=== PATIENT | female | born 1995 | race Caucasian/White ===

== ENCOUNTER 2016-10-07 17:35 | Inpatient (IN) | payer OTHER ==
[~2016-10-07] VITALS: Ht 154.9 cm; Wt 43.1 kg
[2016-10-07 18:32] LABS: URINE APPEARANCE CLEAR (CLEAR); URINE BILIRUBIN NEG (NEG); URINE COLOR YELLOW; URINE NITRITE NEG (NEG); URINE SPECIFIC GRAVITY 1.009 (1.000-1.030); UROBILINOGEN NEG (NEG)
[2016-10-07 18:36] LABS: MANUAL MICROSCOPIC REQUIRED? NO; REVIEW REQ? NO
[2016-10-07 18:59] LABS: BENZODIAZEPINE, URINE NEG (NEG); COCAINE,URINE NEG (NEG); PHENCYCLIDINE, URINE NEG (NEG)
[2016-10-07 19:01] LABS: BASO % 0.2 %; BASO ABS # 0.01 K/uL (0-0.2); COMPLETE YES; EOS % 1.3 %; HEMATOCRIT 40.7 % (37-47); IG% 0.2 %; LYMPH % 32.7 %; LYMPH ABS # 1.99 K/uL (1.2-3.4); MEAN CELL VOLUME 87.2 fL (80-100); MEAN CORPUSCULAR HEMOGLOBIN 30.6 pg (25-34); MEAN CORPUSCULAR HGB CONC 35.1 g/dl (32-36); MEAN PLATELET VOLUME 9.5 fL (7.4-10.4); MONO % 7.2 %; NEUT % 58.4 %; PLATELET COUNT 216 K/uL (130-400); RED BLOOD COUNT 4.67 M/uL (4.2-5.4); WHITE BLOOD COUNT 6.08 K/uL (4.8-10.8)
[2016-10-07 19:26] LABS: BUN/CREATININE RATIO 13.9 (10-20); CALCIUM 9.3 mg/dl (8.5-10.1); CREATININE 0.67 mg/dl (0.60-1.20); POTASSIUM 3.7 mmol/L (3.5-5.1)
[2016-10-07 19:36] LABS: THYROID STIMULATING HORMONE 1.99 uIu/ml (0.300-4.500)
[2016-10-07] MEDS ORDERED: SERT25TA PO (19:52)
[2016-10-07] MEDS ORDERED: CETI10TA84 PO (19:52)
[2016-10-07] MEDS ORDERED: FLUT0.15 NAE (19:52)
[2016-10-07 21:00] VITALS: O2SAT 98
[2016-10-07] MEDS ORDERED: MAGNESIUM HYDROXIDE SUSP 30 ML UDC PO PRN (21:00)
[2016-10-07] MEDS ORDERED: hydrOXYzine HCL 25 MG TAB PO PRN ×2 (21:00)
[2016-10-07] MEDS ORDERED: SODIUM CHLORIDE 0.65% NA SOLN 45 ML (OCEAN) PRN (21:00)
[2016-10-07] MEDS ORDERED: ALUMINUM/MAGNESIUM SUSP 30 ML UDC PO PRN (21:00)
[2016-10-07] MEDS ORDERED: ACETAMINOPHEN 325 MG TAB PO PRN (21:00)
[2016-10-07] MEDS ORDERED: BISMUTH SUBSALICYLATE PER ML OMNICELL CHARGE PO PRN (21:00)
[2016-10-07 22:26] VITALS: BP 118/89; PULSE 67; TEMP 36.5; Ht 154.9 cm; Wt 43.1 kg
--- NOTE | 2016-10-08 00:03 | EMERGENCY ROOM VISIT NOTE ---
History Report prepared by Meghan: Odessa Pimentel Under the Supervision of: Dr. Darin Heath D.O. First contact with patient: 17:57 Chief Complaint: MENTAL HEALTH EVALUATION Stated Complaint: SUICIDAL THOUGHTS History of Present Illness The patient is a 21 year old female who presents to the Emergency Room with complaints of persistent suicidal thoughts starting 3 months ago. The patient was sent here from [facility] at [facility]. The patient is on academic suspension and having financial problems. Her parents were unwilling to cosign a loan for her and her friend who had agreed to cosign the loan changed her mind today. She has been thinking about harming herself over the summer. She has had a plan to hang herself. She is agreeable to inpatient care. She has had abdominal pain starting 1 hour ago which does happen when she is worked up. She denies any hematochezia, melena, or other complaints. She denies any chance of . She currently has her menstrual period. She denies any drug or alcohol use. She is on Zoloft. Source of History: patient Onset: 3 months ago Position: other (mental health) Quality: other (suicidal thoughts) Timing: other (persistent) Associated Symptoms: + abdominal pain, No melena, No hematochezia Review of Systems See HPI for pertinent positives & negatives. A total of 10 systems reviewed and were otherwise negative. Past Medical & Surgical Medical Problems: (1) Depression Family History No pertinent family history stated. Social History Smoking Status: Never Smoker Occupation Status: [employer] student Current/Historical Medications Scheduled Cetirizine (Zyrtec), 10 MG PO DAILY Fluticasone Propionate (Nasal) (Flonase Allergy Relief), TIANA DAILY Sertraline (Zoloft), 10 MG PO DAILY Allergies Coded Allergies: [place] (Verified Allergy, Severe, anaphylaxis/throat swelling, 10/07/16) Physical Exam Vital Signs Date Time Temp Pulse Resp B/P (MAP) Pulse Ox O2 Delivery O2 Flow Rate FiO2 10/07/16 17:43 36.7 69 20 153/85 98 Room Air Physical Exam GENERAL: sitting up in bed, tearful, disheveled EYE EXAM: conjunctiva injected OROPHARYNX: no exudate, no erythema, lips, buccal mucosa, and tongue normal and mucous membranes are moist NECK: supple, no nuchal rigidity, no adenopathy, non-tender LUNGS: Clear to auscultation. Normal chest wall mechanics HEART: no murmurs, S1 normal and S2 normal ABDOMEN: abdomen soft, non-tender, normo-active bowel sounds, no masses, no rebound or guarding. BACK: Back is symmetrical on inspection and there is no deformity, no midline tenderness, no CVA tenderness. SKIN: no rashes and no bruising UPPER EXTREMITIES: upper extremities are grossly normal. LOWER EXTREMITIES: No pitting edema. NEURO EXAM: Normal sensorium, cranial nerves II-XII grossly intact, normal speech, no gross weakness of arms, no gross weakness of legs. No drift. Finger to nose intact. Gross sensation intact. PSYCH: admits to SI with plan to hang herself Medical Decision & Procedures Laboratory Results 10/07/16 18:44 Red Blood Count 4.67, Mean Corpuscular Volume 87.2, Mean Corpuscular Hemoglobin 30.6, Mean Corpuscular Hemoglobin Concent 35.1, Mean Platelet Volume 9.5, Neutrophils (%) (Auto) 58.4, Lymphocytes (%) (Auto) 32.7, Monocytes (%) (Auto) 7.2, Eosinophils (%) (Auto) 1.3, Basophils (%) (Auto) 0.2, Neutrophils # (Auto) 3.55, Lymphocytes # (Auto) 1.99, Monocytes # (Auto) 0.44, Eosinophils # (Auto) 0.08, Basophils # (Auto) 0.01 10/07/16 18:44 Test 10/07/16 17:50 10/07/16 18:15 10/07/16 18:44 Urine Color YELLOW Urine Appearance CLEAR (CLEAR) Urine pH 7.0 (4.5-7.5) Urine Specific [place] 1.009 (1.000-1.030) Urine Protein NEG (NEG) Urine Glucose (UA) NEG (NEG) Urine Ketones NEG (NEG) Urine Occult Blood NEG (NEG) Urine Nitrite NEG (NEG) Urine Bilirubin NEG (NEG) Urine Urobilinogen NEG (NEG) Urine Leukocyte Esterase NEG (NEG) Urine Test NEG (NEG) Urine Opiates Screen NEG (NEG) Urine Methadone, Qualitative NEG (NEG) Urine Barbiturates NEG (NEG) Urine Phencyclidine (PCP) Level NEG (NEG) Ur Amphetamine/Methamphetamine NEG (NEG) MDMA (Ecstasy) Screen NEG (NEG) Urine Benzodiazepines Screen NEG (NEG) Urine Cocaine Metabolite NEG (NEG) Urine Marijuana (THC) NEG (NEG) Bedside Glucose 72 mg/dl (70-90) White Blood Count 6.08 K/uL (4.8-10.8) Red Blood Count 4.67 M/uL (4.2-5.4) Hemoglobin 14.3 g/dL (12.0-16.0) Hematocrit 40.7 % (37-47) Mean Corpuscular Volume 87.2 fL (80-100) Mean Corpuscular Hemoglobin 30.6 pg (25-34) Mean Corpuscular Hemoglobin Concent 35.1 g/dl (32-36) Platelet Count 216 K/uL (130-400) Mean Platelet Volume 9.5 fL (7.4-10.4) Neutrophils (%) (Auto) 58.4 % Lymphocytes (%) (Auto) 32.7 % Monocytes (%) (Auto) 7.2 % Eosinophils (%) (Auto) 1.3 % Basophils (%) (Auto) 0.2 % Neutrophils # (Auto) 3.55 K/uL (1.4-6.5) Lymphocytes # (Auto) 1.99 K/uL (1.2-3.4) Monocytes # (Auto) 0.44 K/uL (0.11-0.59) Eosinophils # (Auto) 0.08 K/uL (0-0.5) Basophils # (Auto) 0.01 K/uL (0-0.2) RDW Standard Deviation 40.1 fL (36.4-46.3) RDW Coefficient of Variation 12.6 % (11.5-14.5) Immature Granulocyte % (Auto) 0.2 % Immature Granulocyte # (Auto) 0.01 K/uL (0.00-0.02) Anion Gap 7.0 mmol/L (3-11) Est Creatinine Clear Calc Drug Dose 93.0 ml/min Estimated GFR () 146.7 Estimated GFR (Non- 126.5 BUN/Creatinine Ratio 13.9 (10-20) Calcium Level 9.3 mg/dl (8.5-10.1) Total Bilirubin 0.7 mg/dl (0.2-1) Direct Bilirubin 0.2 mg/dl (0-0.2) Aspartate Amino Transf (AST/SGOT) 21 U/L (15-37) Alanine Aminotransferase (ALT/SGPT) 26 U/L (12-78) Alkaline Phosphatase 72 U/L (45-117) Total Protein 7.4 gm/dl (6.4-8.2) Albumin 3.9 gm/dl (3.4-5.0) Thyroid Stimulating Hormone (TSH) 1.990 uIu/ml (0.300-4.500) Ethyl Alcohol mg/dL < 3.0 mg/dl (0-3) Laboratory results per my review. ED Course ED COURSE: Vital signs were reviewed and showed hypertension. The patients medical record was reviewed The above diagnostic studies were performed and reviewed. ED treatments and interventions as stated above. 1803: The patient was evaluated in room A7. A complete history and physical examination was performed. 2034: Upon reevaluation, the patient is resting comfortably.I discussed my findings with the patient and she understands and agrees with the treatment plan. Based on the patients age, coexisting illnesses, exam and lab findings the decision to treat as an inpatient was made. The patient remained stable while under my care. The patient has been accepted to [address] [place] [address]. Medical Decision Differential diagnosis: Etiologies such as mood disorder, infection, hypoglycemia, electrolyte abnormalities, cardiac sources, intracerebral event, toxicologic, neurologic, as well as others were entertained. Patient is a 21-year-old female that presents to ER referred in by [facility] because she has been having suicidal thoughts over at him and preparation and money. She denies any other complaints. She has a clear plan to hang himself. CBC, BMP, LFTs, TSH is unremarkable. Tox is negative. Alcohol is negative. UA is negative. negative. Patient was up to the bedside and admitted to psychiatry following a full evaluation. Medication Reconcilliation Current Medication List: was personally reviewed by me Blood Pressure Screening Patient's blood pressure: Elevated blood pressure Blood pressure disposition: Elevated BP felt to be situational Impression Primary Impression: Mood disorder Additional Impression: Suicidal ideation Scribe Attestation The scribe's documentation has been prepared under my direction and personally reviewed by me in its entirety. I confirm that the note above accurately reflects all work, treatment, procedures, and medical decision making performed by me. Departure Information Dispostion [facility] Acute Care Referrals No Doctor, Assigned (PCP) Patient Instructions My [facility] Problem Qualifiers
[2016-10-08 06:46] VITALS: BP_SYST 103; BP_SYST 99; BP_DIAS 59; BP_DIAS 61; PULSE 77; PULSE 82; TEMP 36.5
[2016-10-08] MEDS: FLUTICASONE PROPIONATE NA SPR 16 GM BTL NAE SCH (09:00)
[2016-10-08] MEDS ORDERED: SERTRALINE HCL 50 MG TAB PO SCH ×2 (09:00→22:00)
[2016-10-08] MEDS: CETIRIZINE HCL 10 MG TAB PO SCH (09:00)
[2016-10-08] MEDS ORDERED: METH1TAB16 PO (09:33)
--- NOTE | 2016-10-08 10:06 | Psychiatric History & Physical ---
History Date of Service Oct 08, 2016. 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 She was admitted voluntarily, but immediately submitted a 72 hour notice requesting to withdraw from treatment. There are two 302 petitioning statements, from her therapist and the ER psych disease case manager rn. Chief Complaint "Well basically, I was on academic suspension, so I had to do a petition to withdraw, and part of the reason I wasn't doing well was depression...". History of Present Illness The patient was seen by her therapist at [facility] yesterday, who sent her into the emergency room. The 302 petition completed by her therapist states she has seen her 4 times in the past 2 weeks and she has endorsed increasing suicidal thoughts, and despite a prolonged session yesterday was unable to contract for safety. Hospital notes indicate the patient signed in voluntarily in the ER, then immediately submitted a 72 hour notice, saying she did not want to be here. On my assessment today, the patient reports she wants to leave immediately, as it is making her feel worse to be here, and she thought she was coming to the hospital "for just an evaluation. I never would have come if I knew I'd be admitted." She says she was coerced into signing in, as she was told that if she did not sign in, she would be involuntarily committed "and it would be on my record, so of course I signed. But I am super pissed, I do not need to be here, I need to leave, I have to talk to student aid, I have work to do!" She says she needs to leave to get back to her classes and go to the football game this weekend. She endorses depression, diagnosed this summer by her tent finisher and treated with sertraline 10mg daily. She also reports decreased appetite with a 10 pound weight loss, insomnia, anxiety about school, and tearfulness. She admits to suicidal thoughts "on and off for years," worsening over the past month, with a plan to hang herself or overdose. She has researched ways to commit suicide, but says this was "years ago." She endorses stressors of being on academic probation so had to withdraw from school last spring semester, financial strain, recent breakup, and school. [employer] allowed her to return to school this semester, but has not been able to find someone to cosign on her school loans, so is not sure she will have the money for tuition. Her godmother had initially agreed, but yesterday changed her mind, and sent the patient an email saying she couldn't sign. Her parents are not able to cosign due to their financial situation. She was feeling very stressed about the financial issues yesterday, and was also feeling poorly as she'd just gotten her period. She admits to "being in a super dark place," but says her family and friends are protective. She denies hopelessness. She denies symptoms of monster, panic, PTSD, psychosis, and thoughts of harming others. She denies eating disorder symptoms, says she has lost weight due to decreased appetite from stress, and denies binging, purging, restricting to lose weight. Her sertraline dose was increased to 25mg (which is actually the dose prescribed by her tent finisher), but she refused to take it this morning. She states she just started methylphenidate ER upon return to school, and has been taking it during the school week. She feels it has been helpful for focus. She notes a lot of social turmoil (ending of friendships, etc) during her first two years of college, which negatively impacted her academic performance. Spoke to Dr. Wolf, her tent finisher, who knows the patient and the family well. He clarified that she is actually prescribed sertraline 25mg daily. He notes the patient is histrionic, and often makes dramatic statements, and has a strained relationship with her mother. He also notes she was out partying with her friends for her birthday the night before her admission, despite his recommendation that she not drink while on medications. He further notes that her weight has been around 95lbs for months. Past Psychiatric History Current OP Treatment: therapist (Carmelita Charles PhD at [facility]) Prior OP Treatment: therapist (in [place]) Prior Psych Hospitalizations: none Access to a Gun: No Suicide Attempts: No Additional Notes PCP (tent finisher) has been prescribing psych meds (sertraline 10mg and Adderall ). Sertraline was started over the summer, per patient the dose is so low because "he doesn't really want me on it, wants it to be a temporary thing." Adderall was prescribed earlier this month is preparation for coming back to school. Past Medical/Surgical History History of Concussion/Seizure: No (1) Underweight BMI 17.953 (wt 95lbs) PCP is Dr. Bonilla Wolf in [place], [place] Allergies Allergies: Coded Allergies: [place] (Verified Allergy, Severe, anaphylaxis/throat swelling, 10/07/16) Home Medications Scheduled Cetirizine (Zyrtec), 10 MG PO DAILY Fluticasone Propionate (Nasal) (Flonase Allergy Relief), TIANA DAILY Methylphenidate Hcl (Methylphenidate Hcl Er), 1 TAB PO QAM Sertraline (Zoloft), 10 MG PO DAILY Family History History of Suicide: Yes (maternal aunt) History of Substance Abuse: No Psychiatric History: Yes (aunt with unknown mental illness, who committed suicide) Alcohol Use Alcohol Use In Past 12 Months: Yes (patient drinks monthly or less, one to 2 drinks in a sitting. She denies any history of problems stemming from her alcohol use.) AUDIT Total Score: 1 Smoking Use Smoking Status: Never Smoker Substance History The patient denies abusing illicit or prescription medications. Personal History Lives in: apartment in [place]. From [place] Childhood: Reports good relationship with parents; brother is 3 yrs younger than her, denies conflicts. Raised by both parents who are still together. Dad works two jobs. Education: started college ([employer] at [employer] marjoing in corporate psychology. Is on academic probation.) Work History: worked over the summer Relationship History: never Children: none Legal History: none Psychological Trauma History: Denies Hx Traumatic Event Review of Systems 10 systems reviewed, all are negative except as stated above. Examination Physical Examination A physical exam was performed [in the ER] [on the medical floor] prior to admission to the unit by [ ]. I accept that physical as correct/medical clearance for the inpatient physical exam. Vital Signs Vital Signs Past 12 Hours Date Time Temp Pulse Resp B/P (MAP) Pulse Ox O2 Delivery O2 Flow Rate FiO2 10/08/16 06:46 36.5 77 16 99/61 82 103/59 10/07/16 22:26 36.5 67 14 118/89 10/07/16 21:00 82 20 123/82 98 Room Air Laboratory Results Last 24 Hours Test 10/07/16 17:50 10/07/16 18:15 10/07/16 18:44 Urine Color YELLOW Urine Appearance CLEAR Urine pH 7.0 Urine Specific [place] 1.009 Urine Protein NEG Urine Glucose (UA) NEG Urine Ketones NEG Urine Occult Blood NEG Urine Nitrite NEG Urine Bilirubin NEG Urine Urobilinogen NEG Urine Leukocyte Esterase NEG Urine Test NEG Urine Opiates Screen NEG Urine Methadone, Qualitative NEG Urine Barbiturates NEG Urine Phencyclidine (PCP) Level NEG Ur Amphetamine/Methamphetamine NEG MDMA (Ecstasy) Screen NEG Urine Benzodiazepines Screen NEG Urine Cocaine Metabolite NEG Urine Marijuana (THC) NEG Bedside Glucose 72 mg/dl White Blood Count 6.08 K/uL Red Blood Count 4.67 M/uL Hemoglobin 14.3 g/dL Hematocrit 40.7 % Mean Corpuscular Volume 87.2 fL Mean Corpuscular Hemoglobin 30.6 pg Mean Corpuscular Hemoglobin Concent 35.1 g/dl Platelet Count 216 K/uL Mean Platelet Volume 9.5 fL Neutrophils (%) (Auto) 58.4 % Lymphocytes (%) (Auto) 32.7 % Monocytes (%) (Auto) 7.2 % Eosinophils (%) (Auto) 1.3 % Basophils (%) (Auto) 0.2 % Neutrophils # (Auto) 3.55 K/uL Lymphocytes # (Auto) 1.99 K/uL Monocytes # (Auto) 0.44 K/uL Eosinophils # (Auto) 0.08 K/uL Basophils # (Auto) 0.01 K/uL RDW Standard Deviation 40.1 fL RDW Coefficient of Variation 12.6 % Immature Granulocyte % (Auto) 0.2 % Immature Granulocyte # (Auto) 0.01 K/uL Sodium Level 140 mmol/L Potassium Level 3.7 mmol/L Chloride Level 107 mmol/L Carbon Dioxide Level 26 mmol/L Anion Gap 7.0 mmol/L Blood Urea Nitrogen 9 mg/dl Creatinine 0.67 mg/dl Est Creatinine Clear Calc Drug Dose 93.0 ml/min Estimated GFR () 146.7 Estimated GFR (Non- 126.5 BUN/Creatinine Ratio 13.9 Random Glucose 89 mg/dl Calcium Level 9.3 mg/dl Total Bilirubin 0.7 mg/dl Direct Bilirubin 0.2 mg/dl Aspartate Amino Transf (AST/SGOT) 21 U/L Alanine Aminotransferase (ALT/SGPT) 26 U/L Alkaline Phosphatase 72 U/L Total Protein 7.4 gm/dl Albumin 3.9 gm/dl Thyroid Stimulating Hormone (TSH) 1.990 uIu/ml Ethyl Alcohol mg/dL < 3.0 mg/dl Mental Examination During interview pt is: alert and oriented Appearance: appropriately dressed, appropriately groomed, other (very thin) Eye contact is: good Motor behavior is: steady gait & station, no abnormal motor movements Speech: normal in rate, rhythm & volume Affect: mood congruent, irritable, anxious Mood is: other ("so annoyed") Thought process: goal directed, perseveration (on discharge as soon as possible ) Thought content: reality based without delusions Suicidal thought are: denied (but admits she has had them for months and was suicidal yesterday) Homicidal thoughts are: denied Hallucinations: denies auditory, denies visual Cognition: memory grossly intact, attention grossly intact, language grossly intact Intelligence estimated to be: average Insight: impaired Judgement: impaired Impression / Recommendations Impression 21-year-old single white female [employer] student from [place] with depression treated by her tent finisher at home who presents with suicidal ideation and multiple plans in the context of numerous psychosocial stressors. Although she signed in voluntarily last night, she immediately submitted a 72 hour notice requesting to withdraw from treatment, and is very focused on discharge she does not want to miss school. She is agreeing to increase her sertraline 25 mg daily, and we will need to coordinate care with her PCP and arrange local follow-up. She requires inpatient treatment at this time due to the risk of suicide if discharged, as risk factors have not been sufficiently mitigated. Inventory Assets Strengths: Motivated for treatment, supportive family Risk Factors Assessment : Yes /single/: Yes Higher / Fall in social status: No Access to guns: No Health problems: Yes (underweight) Mental Health Diagnoses: Yes Substance use disorders: No Previous attempt: No Family history of suicide: Yes Previous psychiatric stay: No Hopelessness: No Smoker: No Protective Factors Assessment : No Responsible for young children: No Employed: No Stable relationships: No Supportive family: Yes Good rapport with provider: No (states she doesn't trust her therapist as she sent her to the hospital) Recommendations (1) Suicidal ideation Every 15 minute checks for safety Encouraged to attend groups, work on healthy coping skills and her discharge safety plan. (2) Depression Rule out personality disorder - histrionic traits Increased sertraline to 25 mg daily, and moved to bedtime, as patient feels it makes her sleepy. She was educated about the risks and side effects of medication, as well as what to expect if it is working. Hold methylphenidate ER due to risk of worsening anxiety and decreased appetite with weight loss and low BMI. Call tent finisher who is prescribing to relate information about this admission and medication adjustments. Refer her for outpatient psychiatrist, likely will need to be at [facility] due to her insurance. Coordinate care with her therapist at [facility], Carmelita Charles , PhD. Assist patient in contacting the school as she would like to find out about potential financial services agent options. (3) Underweight Encourage healthy diet and eating for nutrition. Refer to [facility] for medical f/u and computer operations technician. CPT Code Initial Hospital Care: 25507
[2016-10-09 06:50] VITALS: BP_SYST 102; BP_SYST 93; BP_DIAS 59; PULSE 60; PULSE 76; TEMP 36.5
[2016-10-09] MEDS: FLUTICASONE PROPIONATE NA SPR 16 GM BTL NAE SCH (08:44)
[2016-10-09] MEDS: CETIRIZINE HCL 10 MG TAB PO SCH (08:45)
[2016-10-09] MEDS ORDERED: SERT1TAB72 PO (10:17)
--- NOTE | 2016-10-09 10:27 | Discharge Instructions ---
Discharge Information Report Includes Report will include the: Discharge Instructions & Summary Admission Admission Date / Time: Oct 07, 2016 at 20:30 Reason for Admission: Depression Nos Discharge Discharge Diagnosis / Problem: unspecified depressive disorder Condition at Discharge: Good Discharge Goals Goal(s): Improve function, Improve disease control Activity Recommendations Activity Limitations: resume your previous activity . Instructions / Follow-Up Instructions / Follow-Up . SPECIAL CARE INSTRUCTIONS: 1. Follow through with your scheduled aftercare appointments. If unable to keep an appointment, please call to reschedule. 2. Take your medication only as prescribed. Medication should not be changed or stopped without the approval of your doctor. In the event of worsening symptoms or concerns about side effects, contact your doctor immediately. 3. Utilize new healthy coping skills, anger management skills, and stress management skills learned during your hospitalization. Journal feelings and process them with a support person. Identify stressors or situations that may result in relapse, deterioration or inappropriate behaviors and develop a plan to deal with those issues. 4. If your coping skills are ineffective and you are in crisis, contact your outpatient providers for direction. If unable to reach your providers, please call the CAN HELP LINE AT or go to the closest Emergency Room. 5. Avoid alcohol and un-prescribed drugs. 6. You have been provided with the Mental Health Advance Directives Pamphlet for your review. AFTERCARE APPOINTMENTS: * Please call your insurance company prior to your scheduled appointment to confirm your aftercare providers are covered. Take your insurance information to your appointments. . Discharge / Aftercare Planning Primary Care Physician: Name: Bonilla Wolf Appointment Notes: as needed Psychiatrist: Name: Dr Wilfredo CAPS Date of Appointment: Oct 14, 2016 Time of Appointment: 2:00 Appointment Notes: arrive at 2pm for 2:30PM Therapist: Name Of Therapist: Carmelita BOWLES Date of Appointment: Oct 15, 2016 Appointment Comments: and 3:30 Stella Irene Other: Name of Appointment #1: [facility] Date of Appointment #1: Oct 14, 2016 Time of Appointment #1: 2PM . Follow-Up Care Plan for Follow-Up Care: Concerta (methylphenidate ER) was held during your inpatient stay. We'd advise monitoring your mood and appetite upon return home prior to restarting this medication for focus in classes since can decrease appetite. Dose of Zoloft (sertraline) remains the same as admission, dose was confirmed as [address] Wolf. Current Hospital Diet Patient's current hospital diet: Regular Diet Discharge Diet Recommended Diet: Regular Diet Procedures Procedures Performed: No Pending Studies Pending Studies at Discharge: No Medical Emergencies . Who to Call and When: Medical Emergencies: For questions or emergencies related to your hospital stay, please contact the Inpatient Behavioral Health Unit at [phone]. A analyst competitive intelligence is on-call 31/08 for the Behavioral Health Unit for emergencies At any time you feel your situation is an emergency, you may also call 911 immediately. . Non-Emergent Contact Non-Emergency issues call your: Primary Care Provider, Psychiatrist, Therapist Advance Directives Do You Have an Existing Mental: No Existing Living Will: No Existing Power of Mining Machinery Assembler: No Advance Directives Info Given: To Pt/S.O. Advance Directives Reason: Declines as Mental Health Visit. Discharge Summary Admission HPI Per the Admitting provider: The patient was seen by her therapist at [facility] yesterday, who sent her into the emergency room. The 302 petition completed by her therapist states she has seen her 4 times in the past 2 weeks and she has endorsed increasing suicidal thoughts, and despite a prolonged session yesterday was unable to contract for safety. Hospital notes indicate the patient signed in voluntarily in the ER, then immediately submitted a 72 hour notice, saying she did not want to be here. On my assessment today, the patient reports she wants to leave immediately, as it is making her feel worse to be here, and she thought she was coming to the hospital "for just an evaluation. I never would have come if I knew I'd be admitted." She says she was coerced into signing in, as she was told that if she did not sign in, she would be involuntarily committed "and it would be on my record, so of course I signed. But I am super pissed, I do not need to be here, I need to leave, I have to talk to student aid, I have work to do!" She says she needs to leave to get back to her classes and go to the football game this weekend. She endorses depression, diagnosed this summer by her maintenance of way superintendent and treated with sertraline 10mg daily. She also reports decreased appetite with a 10 pound weight loss, insomnia, anxiety about school, and tearfulness. She admits to suicidal thoughts "on and off for years," worsening over the past month, with a plan to hang herself or overdose. She has researched ways to commit suicide, but says this was "years ago." She endorses stressors of being on academic probation so had to withdraw from school last spring, financial strain, recent breakup, and school. [facility] allowed her to return to school this semester, but has not been able to find someone to cosign on her school loans, so is not sure she will have the money for tuition. Her godmother had initially agreed, but yesterday changed her mind, and sent the patient an email saying she couldn't sign. Her parents are not able to cosign due to their financial situation. She was feeling very stressed about the financial issues yesterday, and was also feeling poorly as she'd just gotten her period. She admits to "being in a super dark place," but says her family and friends are protective. She denies hopelessness. She denies symptoms of monster, panic, PTSD, psychosis, and thoughts of harming others. She denies eating disorder symptoms, says she has lost weight due to decreased appetite from stress, and denies binging, purging, restricting to lose weight. Her sertraline dose was increased to 25mg (which is actually the dose prescribed by her maintenance of way superintendent), but she refused to take it this morning. She states she just started methylphenidate ER upon return to school, and has been taking it during the school week. She feels it has been helpful for focus. She notes a lot of social turmoil (ending of friendships, etc) during her first two years of college, which negatively impacted her academic performance. Spoke to Dr. Wolf, her maintenance of way superintendent, who knows the patient and the family well. He clarified that she is actually prescribed sertraline 25mg daily. He notes the patient is histrionic, and often makes dramatic statements, and has a strained relationship with her mother. He also notes she was out partying with her friends for her birthday the night before her admission, despite his recommendation that she not drink while on medications. He further notes that her weight has been around 95lbs for months. Hospital Course (1) Depression Rule out personality disorder - histrionic traits Increased sertraline to 25 mg daily, and moved to bedtime, as patient feels it makes her sleepy. She was educated about the risks and side effects of medication, as well as what to expect if it is working. Hold methylphenidate ER due to risk of worsening anxiety and decreased appetite with weight loss and low BMI. Call maintenance of way superintendent who is prescribing to relate information about this admission and medication adjustments. Refer her for outpatient psychiatrist, likely will need to be at [facility] due to her insurance. Coordinate care with her therapist at [facility], Carmelita Charles , PhD. Assist patient in contacting the school as she would like to find out about potential financial aids officer options. (2) Underweight Encourage healthy diet and eating for nutrition. Refer to [facility] for medical f/u and retail service representative. (3) Suicidal ideation Every 15 minute checks for safety Encouraged to attend groups, work on healthy coping skills and her discharge safety plan. Risk Factors Assessment : Yes /single/: Yes Higher / Fall in social status: No Health problems: Yes (underweight) Mental Health Diagnoses: Yes Substance use disorders: No Previous attempt: No Family history of suicide: Yes Previous psychiatric stay: No Hopelessness: No Smoker: No Protective Factors Assessment : No Responsible for young children: No Employed: No Stable relationships: No Supportive family: Yes Good rapport with provider: No (states she doesn't trust her therapist as she sent her to the hospital) Day of Discharge Assessment Cara has consistently denied suicidal thoughts during her stay and attributes much of her upset to her period. She is future focussed re: cookout with friends (supportive) this weekend and a visit from her parents. Her mother participated in a family meeting yesterday and supports discharge as soon as possible. Dr. Pearson spoke with long time physician and family friend Dr. Wolf yesterday to confirm Zoloft dosing and review clinical presentation. Patient continues to report that past research into suicide was in the context of classroom assignments. Reviewed FDA black box warnings re: suicidal thoughts with SSRIs in adolescents and young adults and she denies any evidence of activation on the medication, symptoms predate rx for Zoloft earlier this summer. She states appetite is actually approving (save stress around admission ). She is able to cite her safety plan and has several follow-up appointments for next week, including one with college reps to work out her financial concerns. Cara spoke of wanting to complete her degree with plan for further study in industrial psychology. Reviewed that she may benefit from hormonal regulation of her menses and/or dosing up on Zoloft in week prior to her period. She will review options with her outpatient care providers. The patient presented as alert and cooperative. The patient was casually dressed and groomed. Eye contact was fair. No psychomotor restlessness or agitation was noted. Speech was normal in rate, rhythm, and volume. Affect was mood congruent. The patients mood appeared euthymic. Thought processes were clear, coherent and goal directed without evidence of loose associations or flight of ideas. Thought content/perception was reality based without delusions. The patient denied suicidal and homicidal ideation. The patient denied hallucinations and did not appear to be responding to internal stimuli. Cognition was grossly intact with orientation to person, place and time. Fund of Knowledge/Intelligence were consistent with level of education. Insight and Judgement were fair. There is no indication for inpatient involuntary commitment at this time and patient's [address]. She is stable for discharge to outpatient level of care with safety plan. Crisis plan reviewed. Laboratory Test 10/07/16 17:50 10/07/16 18:15 10/07/16 18:44 Urine Color YELLOW Urine Appearance CLEAR Urine pH 7.0 Urine Specific [place] 1.009 Urine Protein NEG Urine Glucose (UA) NEG Urine Ketones NEG Urine Occult Blood NEG Urine Nitrite NEG Urine Bilirubin NEG Urine Urobilinogen NEG Urine Leukocyte Esterase NEG Urine Test NEG Urine Opiates Screen NEG Urine Methadone, Qualitative NEG Urine Barbiturates NEG Urine Phencyclidine (PCP) Level NEG Ur Amphetamine/Methamphetamine NEG MDMA (Ecstasy) Screen NEG Urine Benzodiazepines Screen NEG Urine Cocaine Metabolite NEG Urine Marijuana (THC) NEG POC Glucose 72 White Blood Count 6.08 Red Blood Count 4.67 Hemoglobin 14.3 Hematocrit 40.7 Mean Corpuscular Volume 87.2 Mean Corpuscular Hemoglobin 30.6 Mean Corpuscular Hemoglobin Concent 35.1 Platelet Count 216 Mean Platelet Volume 9.5 Neutrophils (%) (Auto) 58.4 Lymphocytes (%) (Auto) 32.7 Monocytes (%) (Auto) 7.2 Eosinophils (%) (Auto) 1.3 Basophils (%) (Auto) 0.2 Neutrophils # (Auto) 3.55 Lymphocytes # (Auto) 1.99 Monocytes # (Auto) 0.44 Eosinophils # (Auto) 0.08 Basophils # (Auto) 0.01 RDW Standard Deviation 40.1 RDW Coefficient of Variation 12.6 Immature Granulocyte % (Auto) 0.2 Immature Granulocyte # (Auto) 0.01 Sodium Level 140 Potassium Level 3.7 Chloride Level 107 Carbon Dioxide Level 26 Anion Gap 7.0 Blood Urea Nitrogen 9 Creatinine 0.67 Est Creatinine Clear Calc Drug Dose 93.0 Estimated GFR () 146.7 Estimated GFR (Non- 126.5 BUN/Creatinine Ratio 13.9 Random Glucose 89 Calcium Level 9.3 Total Bilirubin 0.7 Direct Bilirubin 0.2 Aspartate Amino Transferase (AST) 21 Alanine Aminotransferase (ALT) 26 Alkaline Phosphatase 72 Total Protein 7.4 Albumin 3.9 Thyroid Stimulating Hormone (TSH) 1.990 Ethyl Alcohol mg/dL < 3.0 Total Time Total Time Spent (min): Greater than 30 minutes Total Time Included: examination of the patient, discharge planning, medication reconciliation Tobacco Cessation at Discharge Smoking Status: Never Smoker FDA approved Prescription: non-smoker
== END 2016-10-09 12:39 | disposition home or self-care (01) | DRG 881 ==
LOC: C.EDB 17:37 → C.MHU 20:30 → ENRESERV 20:55
PROVIDERS: ADMIT Psychiatry & Neurology Child & Adolescent Psychiatry; ATTEND Psychiatry & Neurology Psychiatry
DX: F32.9 Major depressive disorder, single episode, unspecified (principal); R45.851 Suicidal ideations; Z68.1 Body mass index [BMI] 19.9 or less, adult; R63.6 Underweight; Z79.899 Other long term (current) drug therapy; Z81.8 Family history of other mental and behavioral disorders